=== PATIENT | female | born 1970 | race Two or more races ===

== ENCOUNTER → 2016-05-22 | Emergency (ER) | payer MEDICAID ==
[~2016-05-22] VITALS: Ht 157.5 cm; Wt 83.9 kg
[~2016-05-22] MED LIST: ALBUT2 HHN; ASPIRIN 325 MG TABLET ONE; ASPIRIN 325 MG TABLET PO ONE; HYDROCODONE/APAP 5/325MG 1 EACH TABLET ONE; HYDROCODONE/APAP 5/325MG 1 EACH TABLET PO ONE; LORA1TAB PO
[2016-05-22 15:59] VITALS: BP 140/88
[2016-05-22 16:18] LABS: BASOPHILS % (AUTO) 0.5 % (0.0-2.0); DIFF TOTAL % 100 %; EOSINOPHILS # (AUTO) 0.1 /CMM (0.0-0.7); EOSINOPHILS % (AUTO) 1.6 % (0.0-6.0); HEMATOCRIT 38 % (33-45); HEMOGLOBIN 12.4 g/dL (11.5-14.8); LYMPHOCYTES # (AUTO) 3.3 /CMM (0.8-4.8); LYMPHOCYTES % (AUTO) 44.3 % (20.0-44.0); MEAN CORPUSCULAR HEMOGLOBIN 28 PG (26.0-33.0); MEAN CORPUSCULAR HGB CONC 33 g/dl (31.0-36.0); MEAN CORPUSCULAR VOLUME 83 fL (82-100); MONOCYTES # (AUTO) 0.7 /CMM (0.1-1.30); MONOCYTES % (AUTO) 9.6 % (2.0-12.0); NEUTROPHILS # (AUTO) 3.2 /CMM (1.8-8.9); PLATELET COUNT (AUTO) 285 /CMM (150-450); RED BLOOD CELL COUNT(AUTO) 4.49 MIL/uL (4.0-5.2); WHITE BLOOD COUNT (AUTO) 7.3 K/uL (4.3-11.0)
[2016-05-22 16:32] LABS: INR 0.96 (0.87-1.13); PROTHROMBIN TIME 10.1 SECS (9.5-12.7)
[2016-05-22 16:40] LABS: ALANINE AMINOTRANSFERASE 34 U/L (12-78); ALBUMIN 3.4 g/dL (3.4-5.0); ANION GAP 13 (5-14); ASPARTATE AMINOTRANSFERASE 24 U/L (15-37); BILIRUBIN,DIRECT 0.1 mg/dL (0.0-0.2); BILIRUBIN,TOTAL 0.4 mg/dL (0.2-1.0); CALCIUM, SERUM 8.9 mg/dL (8.5-10.1); CARBON DIOXIDE 27 mmol/L (21-32); CHLORIDE 104 mmol/L (98-107); CREATININE 0.7 mg/dL (0.6-1.3); GFR 90 mL/min (>60); GLUCOSE 104 mg/dL (74-106); INDIRECT BILIRUBIN 0.3 mg/dL (0.0-1.1); POTASSIUM 3.7 mmol/L (3.5-5.1); SODIUM SERUM 140 mmol/L (136-145); TOTAL PROTEIN, SERUM 7.9 g/dL (6.4-8.2); UREA NITROGEN, BLOOD 15 mg/dL (7-18)
[2016-05-22 16:42] LABS: TROPONIN I < 0.017 ng/mL (0.00-0.056)
== END | disposition home or self-care (01) ==
LOC: ER 15:44
DX: R07.89 Other chest pain (principal); Z90.49 Acquired absence of other specified parts of digestive tract; Z90.89 Acquired absence of other organs; Z90.710 Acquired absence of both cervix and uterus; Z88.6 Allergy status to analgesic agent
CPT/HCPCS: 36415; 71010; 80048; 80076; 84484; 85025; 85730; 93005; 99285; A4606; Z7610

== ENCOUNTER 2017-05-29 21:22 | Emergency (ER) | payer MEDICAID ==
[~2017-05-29] VITALS: Ht 157.5 cm; Wt 81.6 kg
[~2017-05-29 21:22] MED LIST changes: -ASPIRIN 325 MG TABLET ONE; -ASPIRIN 325 MG TABLET PO ONE; -HYDROCODONE/APAP 5/325MG 1 EACH TABLET ONE; -HYDROCODONE/APAP 5/325MG 1 EACH TABLET PO ONE
[2017-05-29 21:37] VITALS: BP 116/85
[2017-05-29] MEDS ORDERED: HYDROCODONE/APAP 5/325MG 1 EACH TABLET ONE (22:51)
[2017-05-29] MEDS ORDERED: HYDROCODONE/APAP 5/325MG 1 EACH TABLET PO ONE (23:00)
== END 2017-05-30 00:59 | disposition home or self-care (01) ==
LOC: ER 21:22
DX: M25.531 Pain in right wrist (principal); M25.532 Pain in left wrist; M79.662 Pain in left lower leg; M79.661 Pain in right lower leg; Z88.6 Allergy status to analgesic agent; Z90.710 Acquired absence of both cervix and uterus; Z90.89 Acquired absence of other organs
CPT/HCPCS: 73090 ×2; 73130 ×2; 73564 ×2; 99284; A4606; Z7610

== ENCOUNTER 2017-09-11 10:33 | Emergency (ER) | payer MEDICAID ==
[~2017-09-11] VITALS: Ht 154.9 cm; Wt 82.1 kg
[2017-09-11 10:52] LABS: APPEARANCE,URINE Clear (CLEAR); BILIRUBIN,URINE Negative (NEGATIVE); BLOOD, URINE Negative Ery/uL (NEGATIVE); COLOR,URINE Dark (YELLOW); KETONES,URINE Negative (NEGATIVE); LEUKOCYTE ESTERASE ,URINE Trace (NEGATIVE); NITRITE, URINE Negative (NEGATIVE); PROTEIN,URINE Negative (NEGATIVE); UGLUCOSE Negative (NEGATIVE); UROBILINOGEN,URINE 0.2 EU/dL (0.2)
[2017-09-11] MEDS ORDERED: MORPHINE SULFATE INJ 2 MG/ML DISP.SYRIN IV ONE (11:00)
[2017-09-11] MEDS ORDERED: IV NS 0.9% 1,000 ML BAG IV ONE (11:00)
--- NOTE | 2017-09-11 11:00 | NUR ---
PT CAME IN WITH C/O RT SIDED ABD PAIN RADIATES TO RT SIDE OF BACK X 3 DAYS. NO RELIEF WITH HOME MEDS. SEEN BY MD FOR EVAL. VSS. SAFETY AND COMFORT MEASURES PROVIDED. WILL MONITOR.
[2017-09-11 11:12] LABS: BACTERIA,URINE Moderate /HPF (None Seen); RBC,URINE 0-2 /HPF (0-2); SQUAMOUS EPITHELIAL CELL,UR Many /HPF (None Seen)
--- NOTE | 2017-09-11 11:12 | NUR ---
IV ACCESS STARTED. BLOOD DRAWN FOR LABS. MEDICATED ORDERED.
[2017-09-11 11:18] LABS: CALCIUM, SERUM 8.7 mg/dL (8.5-10.1); CREATININE 0.8 mg/dL (0.6-1.3); POTASSIUM 3.7 mmol/L (3.5-5.1)
[2017-09-11 11:20] LABS: BASOPHILS % (AUTO) 0.5 % (0.0-2.0); EOSINOPHILS % (AUTO) 1.3 % (0.0-6.0); HEMATOCRIT 37 % (33-45); HEMOGLOBIN 12.5 g/dL (11.5-14.8); LYMPHOCYTES # (AUTO) 3.2 /CMM (0.8-4.8); LYMPHOCYTES % (AUTO) 41.4 % (20.0-44.0); MEAN CORPUSCULAR HGB CONC 34 g/dl (31.0-36.0); MEAN CORPUSCULAR VOLUME 83 fL (82-100); MONOCYTES # (AUTO) 0.6 /CMM (0.1-1.30); MONOCYTES % (AUTO) 7.6 % (2.0-12.0); NEUTROPHILS # (AUTO) 3.9 /CMM (1.8-8.9); NEUTROPHILS % (AUTO) 49.2 % (43.0-81.0); PLATELET COUNT (AUTO) 289 /CMM (150-450); RDW COEFFICIENT OF VARIATION 13.1 (11.5-15.0); RED BLOOD CELL COUNT(AUTO) 4.47 MIL/uL (4.0-5.2); WHITE BLOOD COUNT (AUTO) 7.8 K/uL (4.3-11.0)
[2017-09-11 11:22] LABS: INR 0.94 (0.85-1.15)
[2017-09-11] MEDS ORDERED: CEFTRIAXONE 1GM BAG (ER ONLY) 1 GM/50 ML PIGGYBACK IV ONE (12:30)
[2017-09-11] MEDS ORDERED: HYDROMORPHONE 1 MG/1 ML DISP.SYRIN IV ONE (13:00)
--- NOTE | 2017-09-11 13:10 | NUR ---
IV removed. Catheter intact and site benign. Pressure and 4x4 applied to site. No bleeding noted.
--- NOTE | 2017-09-11 13:21 | NUR ---
Patient discharged to home in stable condition. Written and verbal after care instructions given. Patient verbalizes understanding of instruction.
[2017-09-11 13:35] VITALS: BP 124/77
== END 2017-09-11 13:36 | disposition home or self-care (01) ==
LOC: ER 10:36
DX: N23 Unspecified renal colic (principal); N39.0 Urinary tract infection, site not specified; Z90.710 Acquired absence of both cervix and uterus; Z88.6 Allergy status to analgesic agent; Z90.89 Acquired absence of other organs
CPT/HCPCS: 36415; 74176; 80048; 81001; 83605; 84703; 85025; 85730; 96361; 96365; 96374; 96375; 99285; A4606; J7030; Z7610; 81000-TC

== ENCOUNTER 2017-09-17 18:42 | Emergency (ER) | payer MEDICAID ==
[~2017-09-17] VITALS: Ht 157.5 cm; Wt 82.1 kg
--- NOTE | 2017-09-17 19:00 | NUR ---
RT SIDE OF BACK PAIN RADIATING TO RT LEG X YESTERDAY. NAD NOTED, VSS, RESP EVEN AND UNLABORED, PT WAS PUT ON MONITOR, WAITING FOR MD GIBSON.
[2017-09-17] MEDS ORDERED: HYDROCODONE/APAP 5/325MG 1 EACH TABLET ONE (19:25)
[2017-09-17] MEDS ORDERED: HYDROCODONE/APAP 5/325MG 1 EACH TABLET PO ONE (19:30)
[2017-09-17 19:35] LABS: BASOPHILS # (AUTO) 0.1 /CMM (0.0-0.2); BASOPHILS % (AUTO) 0.5 % (0.0-2.0); EOSINOPHILS % (AUTO) 1.1 % (0.0-6.0); HEMATOCRIT 36 % (33-45); HEMOGLOBIN 12.2 g/dL (11.5-14.8); LYMPHOCYTES # (AUTO) 3.8 /CMM (0.8-4.8); LYMPHOCYTES % (AUTO) 36.1 % (20.0-44.0); MEAN CORPUSCULAR HGB CONC 34 g/dl (31.0-36.0); MEAN CORPUSCULAR VOLUME 83 fL (82-100); MONOCYTES % (AUTO) 9.7 % (2.0-12.0); NEUTROPHILS # (AUTO) 5.5 /CMM (1.8-8.9); NEUTROPHILS % (AUTO) 52.6 % (43.0-81.0); PLATELET COUNT (AUTO) 298 /CMM (150-450); RDW COEFFICIENT OF VARIATION 13.2 (11.5-15.0); RED BLOOD CELL COUNT(AUTO) 4.32 MIL/uL (4.0-5.2); WHITE BLOOD COUNT (AUTO) 10.5 K/uL (4.3-11.0)
[2017-09-17 19:41] LABS: APPEARANCE,URINE Clear (CLEAR); BILIRUBIN,URINE SMALL (NEGATIVE); BLOOD, URINE Negative Ery/uL (NEGATIVE); COLOR,URINE Dark (YELLOW); KETONES,URINE Trace (NEGATIVE); LEUKOCYTE ESTERASE ,URINE Trace (NEGATIVE); NITRITE, URINE Negative (NEGATIVE); PH,URINE 5.5 (5.0-8.0); PROTEIN,URINE 30 mg/dl (NEGATIVE); UGLUCOSE Negative (NEGATIVE); UROBILINOGEN,URINE 0.2 EU/dL (0.2)
[2017-09-17 19:45] LABS: CREATININE 1.1 mg/dL (0.6-1.3); POTASSIUM 3.4 mmol/L (3.5-5.1)
[2017-09-17 19:52] LABS: ALBUMIN 3.5 g/dL (3.4-5.0); BILIRUBIN,TOTAL 0.4 mg/dL (0.2-1.0); TOTAL PROTEIN, SERUM 8.2 g/dL (6.4-8.2)
[2017-09-17 19:53] LABS: BACTERIA,URINE 1+ /HPF (None Seen); SQUAMOUS EPITHELIAL CELL,UR Few /HPF (None Seen)
--- NOTE | 2017-09-17 20:51 | NUR ---
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
[2017-09-17] MEDS ORDERED: FLUCONAZOLE (100 MG) 100 MG TABLET PO ONE (21:30)
[2017-09-17] MEDS ORDERED: FLUCONAZOLE (100 MG) 100 MG TABLET ONE (21:56)
--- NOTE | 2017-09-17 22:02 | NUR ---
Patient discharged to home in stable condition. Written and verbal after care instructions given. Patient verbalizes understanding of instruction AND RX. PT AMBULATED OUT WITH A STEADY GAIT. VSS. NAD NOTED.
[2017-09-17 22:10] VITALS: BP 137/85
== END 2017-09-17 22:27 | disposition home or self-care (01) ==
LOC: ER 18:44
DX: N39.0 Urinary tract infection, site not specified (principal); Z90.710 Acquired absence of both cervix and uterus; Z90.49 Acquired absence of other specified parts of digestive tract; Z90.89 Acquired absence of other organs; Z88.6 Allergy status to analgesic agent
CPT/HCPCS: 36415; 76770-TC; 80053-TC; 81000-TC; 85025-TC; 87086-TC; 87210-TC; A4606; Z7610

== ENCOUNTER 2018-06-24 22:00 | Emergency (ER) | payer MEDICAID ==
[~2018-06-24] VITALS: Ht 157.5 cm; Wt 80.3 kg
--- NOTE | 2018-06-24 22:42 | NUR ---
PT BIBS. COMP OF "HAVE RIGHT SIDE BACK PAIN FOR 4 DAYS" +N/V. -DIZZINESS. -SOB. -ACUTE DISTRESS. AWAITING EVAL.
[2018-06-24 23:11] LABS: APPEARANCE,URINE Clear (CLEAR); BILIRUBIN,URINE Negative (NEGATIVE); BLOOD, URINE Trace-lysed Ery/uL (NEGATIVE); COLOR,URINE Yellow (YELLOW); KETONES,URINE 15 (NEGATIVE); LEUKOCYTE ESTERASE ,URINE Small (NEGATIVE); NITRITE, URINE Negative (NEGATIVE); PH,URINE 6.5 (5.0-8.0); PROTEIN,URINE Negative (NEGATIVE); UGLUCOSE Negative (NEGATIVE)
[2018-06-24] MEDS ORDERED: ONDANSETRON HCL/PF 4 MG/2 ML VIAL IVP ONE (23:30)
[2018-06-24] MEDS ORDERED: IV NS 0.9% 1,000 ML BAG IV ONE (23:30)
[2018-06-24] MEDS ORDERED: oxyCODONE/APAP (5/325 MG) 1 UDTAB TABLET PO ONE (23:30)
[2018-06-24] MEDS ORDERED: ONDANSETRON HCL/PF 4 MG/2 ML VIAL ONE (23:31)
[2018-06-24] MEDS ORDERED: oxyCODONE/APAP (5/325 MG) 1 UDTAB TABLET ONE (23:32)
[2018-06-24 23:36] LABS: BASOPHILS # (AUTO) 0.1 /CMM (0.0-0.2); BASOPHILS % (AUTO) 0.6 % (0.0-2.0); EOSINOPHILS % (AUTO) 0.8 % (0.0-6.0); HEMATOCRIT 39 % (33-45); HEMOGLOBIN 12.6 g/dL (11.5-14.8); LYMPHOCYTES # (AUTO) 3.6 /CMM (0.8-4.8); LYMPHOCYTES % (AUTO) 37.4 % (20.0-44.0); MEAN CORPUSCULAR HGB CONC 33 g/dl (31.0-36.0); MEAN CORPUSCULAR VOLUME 85 fL (82-100); MONOCYTES # (AUTO) 0.9 /CMM (0.1-1.30); NEUTROPHILS % (AUTO) 52.2 % (43.0-81.0); PLATELET COUNT (AUTO) 274 /CMM (150-450); RED BLOOD CELL COUNT(AUTO) 4.53 MIL/uL (4.0-5.2); WHITE BLOOD COUNT (AUTO) 9.6 K/uL (4.3-11.0)
[2018-06-24 23:36] LABS: BACTERIA,URINE Few /HPF (None Seen); SQUAMOUS EPITHELIAL CELL,UR Moderate /HPF (None Seen); WBC,URINE 21-50 /HPF (0-3)
[2018-06-24 23:39] LABS: CALCIUM, SERUM 8.9 mg/dL (8.5-10.1); CREATININE 0.8 mg/dL (0.6-1.3); POTASSIUM 3.7 mmol/L (3.5-5.1)
[2018-06-24 23:44] LABS: ALBUMIN 3.4 g/dL (3.4-5.0); BILIRUBIN,DIRECT 0.1 mg/dL (0.0-0.2); BILIRUBIN,TOTAL 0.5 mg/dL (0.2-1.0)
[2018-06-25 00:56] VITALS: BP 130/86
[2018-06-25] MEDS ORDERED: NITROFURANTOIN/NITROFURAN MAC 100 MG CAPSULE PO ONE (01:00)
== END 2018-06-25 00:57 | disposition home or self-care (01) ==
LOC: ER 22:01
DX: N39.0 Urinary tract infection, site not specified (principal); G89.29 Other chronic pain; F11.23 Opioid dependence with withdrawal; Z90.89 Acquired absence of other organs; Z98.890 Other specified postprocedural states; Z90.49 Acquired absence of other specified parts of digestive tract; Z90.710 Acquired absence of both cervix and uterus; Z88.6 Allergy status to analgesic agent; Z79.899 Other long term (current) drug therapy
CPT/HCPCS: 36415; 80048-TC; 80076-TC; 81000-TC; 83690-TC; 84703-TC; 85025-TC; 85730-TC; 87086-TC; 87186-TC; J2405; J7030

== ENCOUNTER 2021-05-20 08:45 | Emergency (ER) | payer MEDICAID ==
[~2021-05-20] VITALS: Ht 154.9 cm; Wt 81.6 kg
[2021-05-20 09:30] LABS: BILIRUBIN,URINE NEGATIVE (NEGATIVE); COLOR,URINE YELLOW (YELLOW); LEUKOCYTE ESTERASE ,URINE LARGE (NEGATIVE); NITRITE, URINE NEGATIVE (NEGATIVE); PH,URINE 7.5 (5.0-8.0); PROTEIN,URINE NEGATIVE (NEGATIVE); UGLUCOSE NEGATIVE (NEGATIVE); UROBILINOGEN,URINE 0.2 EU/dL (0.2)
[2021-05-20] MEDS ORDERED: IV NS 0.9% 1,000 ML BAG IV ONE (09:30)
--- NOTE | 2021-05-20 09:33 | NUR ---
SEEN BY DR NAVAS,ANDRES ESTABLISHED,BLOOD DRAWN FOR LABS,IVF STARTED ORDERED
--- NOTE | 2021-05-20 09:34 | NUR ---
C/O WORSENING PAIN,DR NAVAS INFORMED
[2021-05-20 09:47] LABS: BACTERIA,URINE Few /HPF (None Seen); RBC,URINE 0-3 /HPF (0-2); SQUAMOUS EPITHELIAL CELL,UR Moderate /HPF (None Seen)
[2021-05-20 09:51] LABS: BASOPHILS % (AUTO) 0.4 % (0.0-2.0); EOSINOPHILS % (AUTO) 0.6 % (0.0-6.0); HEMATOCRIT 39 % (33-45); HEMOGLOBIN 12.9 g/dL (11.5-14.8); LYMPHOCYTES # (AUTO) 3.8 K/uL (0.8-4.8); LYMPHOCYTES % (AUTO) 42.1 % (20.0-44.0); MEAN CORPUSCULAR HGB CONC 33 g/dl (31.0-36.0); MEAN CORPUSCULAR VOLUME 86 fL (82-100); MONOCYTES # (AUTO) 0.8 K/uL (0.1-1.30); MONOCYTES % (AUTO) 8.4 % (2.0-12.0); NEUTROPHILS # (AUTO) 4.4 K/uL (1.8-8.9); NEUTROPHILS % (AUTO) 48.5 % (43.0-81.0); PLATELET COUNT (AUTO) 292 K/uL (150-450); RED BLOOD CELL COUNT(AUTO) 4.58 MIL/uL (4.0-5.2); WHITE BLOOD COUNT (AUTO) 9.1 K/uL (4.3-11.0)
[2021-05-20 10:07] LABS: ALBUMIN 3.5 g/dL (3.4-5.0); BILIRUBIN,DIRECT 0.2 mg/dL (0.0-0.2); BILIRUBIN,TOTAL 0.5 mg/dL (0.2-1.0); CALCIUM, SERUM 8.7 mg/dL (8.5-10.1); CREATININE 0.8 mg/dL (0.6-1.3); POTASSIUM 3.7 mmol/L (3.5-5.1); TOTAL PROTEIN, SERUM 8.3 g/dL (6.4-8.2)
--- NOTE | 2021-05-20 11:28 | NUR ---
DR. RIVERA SPEAKING WITH DR. ROBLERO.
[2021-05-20] MEDS ORDERED: ONDANSETRON HCL/PF 4 MG/2 ML VIAL IV ONE (11:30)
[2021-05-20] MEDS ORDERED: CEFTRIAXONE 1 G in IV D5W 50 ML IV ONE (11:30)
[2021-05-20] MEDS ORDERED: FENTANYL PF 100MCG/2ML AMPUL IV ONE (11:30)
[2021-05-20] MEDS ORDERED: ONDANSETRON HCL/PF 4 MG/2 ML VIAL ONE (11:32)
[2021-05-20] MEDS ORDERED: FENTANYL PF 100MCG/2ML AMPUL ONE (11:33)
[2021-05-20] MEDS ORDERED: CEFTRIAXONE 1GM BAG (ER ONLY) 50 ML IV ONE (11:41)
[2021-05-20] MEDS ORDERED: HYDR-4303 PO (12:00)
[2021-05-20] MEDS ORDERED: CEPH500C2 PO (12:00)
[2021-05-20] MEDS ORDERED: TAMS-12 PO (12:00)
[2021-05-20] MEDS ORDERED: ONDA4TAB5 PO (12:00)
--- NOTE | 2021-05-20 12:35 | NUR ---
IV removed. Catheter intact and site benign. Pressure and 4x4 applied to site. No bleeding noted.Patient discharged to home in stable condition. Written and verbal after care instructions given. Patient verbalizes understanding of instruction.
[2021-05-20 12:48] VITALS: BP 146/78
== END 2021-05-20 12:39 | disposition home or self-care (01) ==
LOC: ER 08:47
DX: N20.0 Calculus of kidney (principal); N39.0 Urinary tract infection, site not specified; N13.30 Unspecified hydronephrosis; Z90.49 Acquired absence of other specified parts of digestive tract; Z90.710 Acquired absence of both cervix and uterus
CPT/HCPCS: 36415; 74176; 80048; 80076; 81001; 83690; 84703; 85025; 87086; 96361; 96365; 96375; 99284; J0696 ×2; J2405; J3010; J7030; J7060

== ENCOUNTER 2024-07-13 16:39 | Emergency (ER) | payer MEDICAID ==
[~2024-07-13] VITALS: Ht 167.6 cm; Wt 74.8 kg
[~2024-07-13 16:39] MED LIST changes: +CEPH500C2 PO; +HYDR-4303 PO; +ONDA4TAB5 PO; +TAMS-12 PO
[2024-07-13 16:52] VITALS: BP 149/84; TEMP 97.9
[2024-07-13] MEDS ORDERED: GABA-532 PO (18:19)
[2024-07-13] MEDS ORDERED: BACL5TAB PO (18:19)
[2024-07-13] MEDS ORDERED: TYL2T PO (18:19)
[2024-07-13 18:26] VITALS: O2SAT 97
== END 2024-07-13 18:26 | disposition home or self-care (01) ==
LOC: ER 16:39
DX: M79.7 Fibromyalgia (principal); G89.29 Other chronic pain; Z79.899 Other long term (current) drug therapy; Z90.49 Acquired absence of other specified parts of digestive tract; Z90.710 Acquired absence of both cervix and uterus
CPT/HCPCS: 99283; A4223; J7030

== ENCOUNTER 2025-04-07 16:47 | Emergency (ER) | payer MEDICAID ==
[~2025-04-07] VITALS: Ht 157.5 cm; Wt 70.3 kg
[~2025-04-07 16:47] MED LIST changes: +BACL5TAB PO; +GABA-532 PO; +TYL2T PO
[2025-04-07 17:34] VITALS: TEMP 98.5
[2025-04-07] MEDS ORDERED: IPRATROPIUM NEB FS 0.5 MG/2.5 ML AMPUL.NEB ONE (17:52)
[2025-04-07] MEDS ORDERED: ALBUTEROL FS 2.5 MG/3 ML VIAL.NEB ONE (17:52)
[2025-04-07 17:55] VITALS: O2SAT 98
[2025-04-07] MEDS: IPRATROPIUM NEB FS 0.5 MG/2.5 ML AMPUL.NEB NEB ONE (17:57)
[2025-04-07] MEDS: ALBUTEROL FS 2.5 MG/3 ML VIAL.NEB NEB ONE (17:57)
[2025-04-07 18:10] VITALS: O2SAT 98
[2025-04-07 18:23] LABS: PLATELET COUNT (AUTO) 266 K/uL (150-450); RED BLOOD CELL COUNT(AUTO) 4.75 MIL/uL (4.0-5.2); RED CELL DISTRIBUTION WIDTH 14.2 % (11.5-15.0); WHITE BLOOD COUNT (AUTO) 8.0 K/uL (4.3-11.0)
[2025-04-07 18:26] LABS: CALCIUM, SERUM 8.9 mg/dL (8.5-10.1); CREATININE 0.7 mg/dL (0.6-1.3); SODIUM SERUM 139 mmol/L (136-145); UREA NITROGEN, BLOOD 19 mg/dL (7-18)
[2025-04-07] MEDS ORDERED: ALBU8.5H8 INH (21:12)
[2025-04-07] MEDS ORDERED: CETI-90 PO (21:12)
[2025-04-07] MEDS ORDERED: BENZ1LOZ58 PO (21:12)
[2025-04-07] MEDS ORDERED: BENZ-13 PO (21:12)
[2025-04-07] MEDS ORDERED: FLUT16SP16 BNOSTRILS (21:12)
[2025-04-07] MEDS ORDERED: PRED20TA PO (21:12)
[2025-04-07 21:46] VITALS: BP 139/81; O2SAT 97
== END 2025-04-07 21:46 | disposition home or self-care (01) ==
LOC: ER 16:58
DX: J06.9 Acute upper respiratory infection, unspecified (principal); R05.9 Cough, unspecified; J45.901 Unspecified asthma with (acute) exacerbation; I11.9 Hypertensive heart disease without heart failure; E78.5 Hyperlipidemia, unspecified; Z78.0 Asymptomatic menopausal state; Z79.52 Long term (current) use of systemic steroids; Z79.899 Other long term (current) drug therapy; Z90.49 Acquired absence of other specified parts of digestive tract; Z90.710 Acquired absence of both cervix and uterus; Z60.2 Problems related to living alone; Z20.822 Contact with and (suspected) exposure to COVID-19
CPT/HCPCS: 99285; 71045; 87426; 93005 ×4; 87804 ×2; 85025; 80048; 87070; 36415; 87880; 84484 ×2; 83880; 94640; J7512; 86403-TC